=== PATIENT | female | born 1965 | race Caucasian/White ===

== ENCOUNTER 2022-08-08 20:22 | Observation (INO) | payer OTHER ==
[2022-08-08] MEDS ORDERED: MAG HYDROX/AL HYDROX/SIMETH 30 ML, HYOSCYAMINE ELIXIR 10 ML, LIDOCAINE VISCOUS 2% 10 ML PO STA ×3 (20:55)
[2022-08-08 21:09] LABS: Albumin 4.5 g/dL (3.5-5.0); Magnesium 2.1 mg/dL (1.6-2.3); Potassium 4.2 mmol/L (3.5-5.1); Total Bilirubin 0.5 mg/dL (0.2-1.3); Total Protein 7.6 g/dL (6.3-8.2)
[2022-08-08 21:11] LABS: Basophils % (A) 0 %; Eosinophils # (A) 0.2 k/uL (0-0.7); Eosinophils % (A) 3 %; HCT 46.3 % (34.0-46.0); HGB 15.4 gm/dL (11.4-16.0); Lymphocytes # (A) 2.2 k/uL (1.0-4.8); Lymphocytes % (A) 25 %; MCH 31.1 pg (25.0-35.0); MCHC 33.2 g/dL (31.0-37.0); MCV 93.8 fL (80.0-100.0); Mean Platelet Volume 8.4; Monocytes # (A) 0.5 k/uL (0-1.0); Monocytes % (A) 5 %; Neutrophils # (A) 5.7 k/uL (1.3-7.7); Neutrophils % (A) 64 %; Platelet Count 387 k/uL (150-450); RBC 4.94 m/uL (3.80-5.40); RDW 13.3 % (11.5-15.5); WBC 8.9 k/uL (3.8-10.6)
--- NOTE | 2022-08-08 21:18 | XR ---
EXAMINATION TYPE: XR chest 2V DATE OF EXAM: 08/08/2022 COMPARISON: NONE TECHNIQUE: PA and lateral views submitted. HISTORY: Chest pain FINDINGS: The lungs are clear and there is no pneumothorax, pleural effusion, or focal pneumonia. Heart size normal and no overt failure. Osseous structures demonstrate hypertrophic and degenerative changes of the spine. IMPRESSION: 1. No acute process.
--- NOTE | 2022-08-08 22:44 | CT ---
EXAMINATION TYPE: CT chest angio for PE DATE OF EXAM: 08/08/2022 COMPARISON: None HISTORY: Chest pain radiating into head and back. Hx HTN CT DLP: 451.6 mGycm Automated exposure control for dose reduction was used. CONTRAST: CT Chest for pulmonary embolism performed with with IV Contrast, patient injected with 100 mL of Isov ue 370. FINDINGS: LUNGS: Subsegmental changes in the lungs are most typical of atelectasis there is a 3 mm nodule axial image 42 within the right upper lobe too small to characterize additional well 1 to 2 mm nodule subp leural location right upper lobe axial image 76.. There is no pleural effusion or pneumothorax seen . The tracheobronchial tree is patent. MEDIASTINUM: There is satisfactory enhancement of the pulmonary artery and its branches, there is no CT evidence for pulmonary embolism. There are no greater than 1 cm hilar or mediastinal lymph nodes. Trace pericardial effusion is seen. OTHER: Hypertrophic and degenerative changes spine. Small hiatal hernia. IMPRESSION: 1. No diagnostic evidence of pulmonary embolism 2. Bilateral subsegmental areas of consolidation are nonspecific favor atelectasis correlate clinical ly to exclude pneumonitis. There are 3 sub-5 mm pulmonary nodules too small to characterize but likel y benign. Six-month follow-up CT chest recommended.
--- NOTE | 2022-08-08 23:04 | ED ---
Chest Pain HPI - General Chief Complaint: Chest Pain Stated Complaint: Chest Pain Time Seen by Provider: 08/08/22 20:36 Source: patient Mode of arrival: ambulatory Limitations: no limitations - History of Present Illness Initial Comments: This patient is 57-year-old woman who presents to have evaluation of substernal chest pain that radiates to her back. The patient states that it had come on earlier today and has been going on for number of hours. She states that it might be a little worse in relation to food. She has not had nausea or vomiting. The patient did not note any diaphoresis, dyspnea, palpitations, lightheadedness or syncope. Patient also noted headache that came on today. She does state that she had an episode of pain to the left side of the neck within the past week. Patient denies previous history of heart disease or smoking. MD Complaint: chest pain -: hour(s) Onset: during rest Pain Location: substernal Pain Radiation: back, neck Severity: moderate Quality: tightness, aching Consistency: constant Improves With: nothing Worsens With: eating Treatments Prior to Arrival: none - Related Data Home Medications Medication Instructions Recorded Confirmed ALPRAZolam [Xanax] 0.5 mg PO HS 08/08/22 08/08/22 Baclofen 10 mg PO HS PRN 08/08/22 08/08/22 Cholecalciferol [Vitamin D3 (25 25 mcg PO DAILY 08/08/22 08/08/22 Mcg = 1000 Iu)] Diclofenac Potassium [Cataflam] 50 mg PO BID PRN 08/08/22 08/08/22 Escitalopram Oxalate [Lexapro] 20 mg PO DAILY 08/08/22 08/08/22 Multivitamins, Thera [Multivitamin 1 tab PO DAILY 08/08/22 08/08/22 (formulary)] Olmesartan [Benicar] 20 mg PO HS 08/08/22 08/08/22 Allergies Allergy/AdvReac Type Severity Reaction Status Date / Time codeine Allergy Vomiting Verified 08/08/22 21:11 Review of Systems ROS Statement: Those systems with pertinent positive or pertinent negative responses have been documented in the HPI. ROS Other: All systems not noted in ROS Statement are negative. Constitutional: Denies: fever, chills Respiratory: Denies: cough, dyspnea Cardiovascular: Reports: chest pain. Denies: palpitations, orthopnea, edema, syncope Gastrointestinal: Denies: abdominal pain, nausea, vomiting, melena, hematochezia Genitourinary: Denies: dysuria, hematuria Musculoskeletal: Denies: back pain Skin: Denies: rash Neurological: Denies: headache, weakness, numbness EKG Findings - EKG Results: EKG: interpreted by HENRIETTA, sinus rhythm (Rate 74 bpm), normal axis, normal ST/T - Blocks, Burton, Hypertrophy, ST Abn: QRS axis and voltage: low voltage (<0.5 MV total QRS and <1.0 MV in each precordial lead) Past Medical History Past Medical History: Hypertension History of Any Multi-Drug Resistant Organisms: None Reported Past Surgical History: No Surgical Hx Reported Past Psychological History: No Psychological Hx Reported Smoking Status: Never smoker Past Alcohol Use History: None Reported Past Drug Use History: None Reported General Exam Limitations: no limitations General appearance: alert, in no apparent distress Head exam: Present: atraumatic, normocephalic Eye exam: Present: normal appearance. Absent: scleral icterus, conjunctival i njection Neck exam: Present: normal inspection Respiratory exam: Present: normal lung sounds bilaterally. Absent: respiratory distress, wheezes, rales, rhonchi, stridor, chest wall tenderness Cardiovascular Exam: Present: regular rate, normal rhythm, normal heart sounds. Absent: systolic murmur, diastolic murmur, rubs, gallop GI/Abdominal exam: Present: soft. Absent: distended, tenderness, guarding, rebound, rigid, mass Extremities exam: Present: normal inspection, normal capillary refill. Absent: pedal edema, calf tenderness Back exam: Present: normal inspection. Absent: CVA tenderness (R), CVA tenderness (L) Neurological exam: Present: alert Skin exam: Present: warm, dry, intact, normal color. Absent: rash Course Vital Signs 08/08/22 20:28 Temperature 98.1 F Pulse Rate 89 Respiratory 18 Rate Blood Pressure 145/86 O2 Sat by Pulse 98 Oximetry Chest Pain MDM - MDM This patient is a 57-year-old woman presenting with substernal chest pain radiating to the back. The workup here includes chest x-ray which I interpreted as not showing any infiltrate, pneumothorax, congestive heart failure. Her workup does reveal a mildly elevated d-dimer but subsequent computed tomography scan of the chest was performed and I interpreted this as not showing evidence of pulmonary embolism. On reevaluation, the patient states she has had some recurrent episodes of the pain while here, and given this and the fact that she had previous episode this week, will admit to have so cardiac enzymes, telemetry monitoring, cardiology consultation though at this point suspect the pain is non-cardiac in origin. Disposition Clinical Impression: Chest pain Disposition: HOME SELF-CARE Condition: Good Is patient prescribed a controlled substance at d/c from ED?: No
[2022-08-08] MEDS ORDERED: diphenhydrAMINE 50 MG/ML 1 ML VIAL IVP STA (23:09)
[2022-08-08] MEDS ORDERED: METOCLOPRAMIDE 5 MG/ML 2 ML VIAL IVP STA (23:09)
[2022-08-08] MEDS ORDERED: SODIUM CHLORIDE 0.9% 500 ML 500 ML IV STA (23:09)
[2022-08-08] MEDS ORDERED: NITROGLYCERIN SL TABS 0.4 MG TAB SUBLINGUAL PRN (23:54)
[2022-08-08] MEDS ORDERED: ETODOLAC 200 MG CAPSULE PO PRN (23:56)
[2022-08-08] MEDS ORDERED: BACLOFEN 10 MG TAB PO PRN (23:56)
[2022-08-09] MEDS: LOSARTAN 50 MG TAB PO SCH ×2 (01:10→20:04)
[2022-08-09] MEDS ORDERED: ATORVASTATIN 80 MG TAB PO STA (03:55)
--- NOTE | 2022-08-09 03:56 | P.HPIM ---
History of Present Illness H&P Date: 08/09/22 The patient is a 57-year-old female with a PMH of depression who presents to the emergency room with complaints of chest pain. The patient reports that roughly a week ago she had an episode of left-sided chest discomfort aching in nature with radiation into her neck which lasted for a few minutes and then resolved spontaneously. Earlier today however, the patient states that she developed a substernal burning like sensation, occurring intermittently every 30-40 minutes and lasting for a few minutes at a time, 5 out of 10 on maximal intensity, with no clear alleviating or exacerbating features. Patient denies a prior history of GERD. The patient denied experiencing diaphoresis, palpitations, shortness of breath, nausea, vomiting. She reports no discomfort at the time of interview and states that she felt that her baseline. Chest CT in the emergency room revealed 3 sub 5 mm pulmonary nodules likely benign with six-month follow-up CT chest recommended. EKG revealed sinus rhythm at [address]/T-wave changes noted as reviewed by me. Laboratory evaluation was remarkable for troponin less than 0.012 with d-dimer 0.78. ED documentation reviewed and case discussed with ED provider. Review of systems: Pertinent positives and negatives as discussed in HPI, a complete review of systems was performed and all other systems are negative. Physical examination: Vital signs reviewed General: non toxic, no distress, appears at stated age, obese Derm: no unusual rashes/lesions, warm Head: atraumatic, normocephalic, symmetric Eyes: EOMI, no lid lag, anicteric sclera, pupils equal round reactive to light ENT: Nose and ears atraumatic Neck: No cervical lymphadenopathy, trachea midline, supple Mouth: no lip lesion, mucus membranes moist Cardiovascular: S1S2 reg, no murmur, positive dorsalis pedis pulse bilateral, no edema Lungs: CTA bilateral, no rhonchi, no rales, no accessory muscle use Abdominal: soft, nontender to palpation, no guarding Ext: muscle strength 5 out of 5 in all 4 extremities grossly, no gross muscle atrophy, no contractures, Neuro: CN II-XI grossly intact, no gross focal neuro deficits Psych: Alert, oriented, appropriate affect Assessment: Atypical chest discomfort, rule out ACS Multiple pulmonary nodules Chronic conditions hypertension Imaging: Chest CT in the emergency room revealed 3 sub 5 mm pulmonary nodules likely benign with six-month follow-up CT chest recommended. EKG revealed sinus rhythm at [address]/T-wave changes noted as reviewed by me. Data Review: Laboratory evaluation was remarkable for troponin less than 0.012 with d-dimer 0.78. Plan: Cardiology consulted Cardiac monitoring Trend troponin Continue with aspirin and statin Patient will need outpatient follow-up computed tomography scan in 6 months DVT prophylaxis: Heparin subcu The patient is admitted with an anticipated less than 2 midnight stay for evaluation of chest pain CODE STATUS: Full Code Discussed with: Patient Anticipated discharge date: in am Anticipated discharge place: Home Past Medical History Past Medical History: Hypertension History of Any Multi-Drug Resistant Organisms: None Reported Past Surgical History: No Surgical Hx Reported Past Psychological History: No Psychological Hx Reported Smoking Status: Never smoker Past Alcohol Use History: None Reported Past Drug Use History: None Reported Medications and Allergies Home Medications Medication Instructions Recorded Confirmed Type ALPRAZolam [Xanax] 0.5 mg PO HS 08/08/22 08/08/22 History Baclofen 10 mg PO HS PRN 08/08/22 08/08/22 History Cholecalciferol [Vitamin D3 (25 25 mcg PO DAILY 08/08/22 08/08/22 History Mcg = 1000 Iu)] Diclofenac Potassium [Cataflam] 50 mg PO BID PRN 08/08/22 08/08/22 History Escitalopram Oxalate [Lexapro] 20 mg PO DAILY 08/08/22 08/08/22 History Multivitamins, Thera [Multivitamin 1 tab PO DAILY 08/08/22 08/08/22 History (formulary)] Olmesartan [Benicar] 20 mg PO HS 08/08/22 08/08/22 History Allergies Allergy/AdvReac Type Severity Reaction Status Date / Time codeine Allergy Vomiting Verified 08/08/22 21:11 Physical Exam Vitals: Vital Signs Temp Pulse Resp BP Pulse Ox 08/09/22 00:54 18 08/08/22 20:28 98.1 F 89 18 145/86 98 Intake and Output 08/08/22 08/08/22 08/09/22 14:59 22:59 06:59 Other: Voiding Method Toilet # Voids 1 Weight 104.326 kg 104.326 kg Results CBC & Chem 7: 08/08/22 20:40 08/08/22 20:40 Labs: Abnormal Lab Results - Last 24 Hours (Table) 08/08/22 08/08/22 08/08/22 Range/Units 20:40 20:40 20:40 Hct 46.3 H (34.0-46.0) % D-Dimer 0.78 H (<0.60) mg/L FEU Glucose 130 H (74-99) mg/dL
[2022-08-09] MEDS ORDERED: ACETAMINOPHEN TAB 325 MG TAB PO STA (06:01)
[2022-08-09] MEDS: HEPARIN SODIUM,PORCINE/PF 5,000 UNIT/0.5 ML SYRINGE SQ SCH ×3 (08:52→22:18)
[2022-08-09] MEDS: ESCITALOPRAM 20 MG TAB PO SCH (08:53)
[2022-08-09] MEDS: CHOLECALCIFEROL 25 MCG (1000 IU) TABLET PO SCH (08:53)
[2022-08-09] MEDS ORDERED: ASPIRIN 325 MG TAB PO SCH (09:00)
[2022-08-09] MEDS ORDERED: KETOROLAC 15 MG/ML 1 ML VIAL IVP STA (10:38)
[2022-08-09] MEDS ORDERED: PROCHLORPERAZINE INJ 10 MG/2 ML VIAL IVP STA (10:38)
[2022-08-09] MEDS ORDERED: diphenhydrAMINE 50 MG/ML 1 ML VIAL IVP STA (10:38)
--- NOTE | 2022-08-09 10:38 | P.PN ---
Subjective Progress Note Date: 08/09/22 Hospital course: Patient is a very pleasant 57-year-old of hypertension and depression. She presented to the emergency department overnight with a chief complaint of chest pain. Patient reports a burning sensation in the midsternal chest radiating into her back and up into her neck beginning approximately one week ago and progressively worsening accompanied by dysphagia and feelings as though something is stuck in her throat or chest. Patient denies choking and remains able to tolerate oral intake. She underwent full evaluation in the emergency department. CBC and CMP were completed and unremarkable. D-dimer was slightly elevated at 0.78 and Troponin was negative at less than 0.012. EKG completed showing normal sinus rhythm at 74 bpm with T-wave inversion in aVL and no ST abnormalities showing no signs of acute ischemia. No previous EKGs available for comparison. CTA chest showing no evidence of pulmonary emboli revealing bilateral subsegmental areas of consolidation nonspecific for atelectasis, cannot exclude pneumonitis and there were three 5 mm pulmonary nodules too small to characterize but likely benign in which radiologist recommending six-month follow-up CT. Chest x-ray completed and was negative for acute cardiopulmonary process. Patient was admitted observation unit under our services with consultation to cardiology and general surgery. Troponins trended overnight all negative at less than 0.0123 draws. Physical exam: Patient seen and evaluated at bedside this morning. Patient currently reports having a headache and continued burning in her chest. Vital signs reviewed and stable. General: Nontoxic, no distress and appears stated age. Derm: Skin warm and dry, normal coloration for ethnicity. Head: Atraumatic, normocephalic and symmetric. Eyes: EOMs intact, no lid lag, and anicteric sclera Mouth: no lip lesions, mucus membranes moist Cardiovascular: regular rate and rhythm with normal S1S2, no murmur, positive posterior tibial pulses bilaterally, and cap refill < 2 seconds. Lungs: Respirations even, regular, and unlabored on room air. Lungs CTA bilaterally, no rhonchi, no rales, no wheezing, and no accessory muscle usage. Abdominal: soft, nontender to palpation, no guarding, no appreciable organomegaly Ext: ROM intact. No gross muscle atrophy, no edema, no contractures Neuro: Speech clear, face symmetrical and CN II-XII grossly intact with no noted focal neuro deficits Psych: Alert and oriented to person, place, time, and situation. Appropriate and pleasant affect. Assessment and Plan of Care: Chest pain Dysphasia Pulmonary nodules -Troponins were trended started overnight and reviewed all negative at less than 0.013 draws. -Echocardiogram to be completed. -Cardiology following and discussed plan of care with cardiac VOICE INTERCEPT TECHNICIAN stated planning to take patient for cardiac stress test tomorrow morning. -Gen. surgery consulted and discussed patient's reports. General surgeon states he will evaluate for possible upper endoscopy. -Patient to remain on telemetry monitoring. CODE STATUS: Full code DVT prophylaxis: Heparin Discussed with: Patient, RN, cardiac VOICE INTERCEPT TECHNICIAN, and general surgeon Anticipated discharge date: Clinical course to determine likely 1-[address]: Home Patient was seen independently by Nurse Pracitioner. This document was prepared using [employer] dictation software. Please allow for errors in grinding and polishing laborer, while rare they do occur. Arpit Saini VOICE INTERCEPT TECHNICIAN rendered care for this patient independently, reviewed the findings and plan as documented in the note above. I did not physically speak with or examine the patient on this date. Objective - Vital Signs Vital signs: Vital Signs Temp 98.1 F 08/09/22 07:30 Pulse 64 08/09/22 08:00 Resp 16 08/09/22 08:00 BP 148/85 08/09/22 07:30 Pulse Ox 99 08/09/22 07:53 FiO2 Intake & Output 08/08/22 08/09/22 08/09/22 18:59 06:59 18:59 Weight 104.326 kg Other: Voiding Method Toilet Toilet # Voids 1 - Labs CBC & Chem 7: 08/08/22 20:40 08/08/22 20:40 Labs: Abnormal Lab Results - Last 24 Hours (Table) 08/08/22 08/08/22 08/08/22 Range/Units 20:40 20:40 20:40 Hct 46.3 H (34.0-46.0) % D-Dimer 0.78 H (<0.60) mg/L FEU Glucose 130 H (74-99) mg/dL
[2022-08-09 11:03] LABS: Chol/HDL Ratio 3.92 Ratio; VLDL Calculation 14.36 mg/dL (5.00-40.00)
--- NOTE | 2022-08-09 12:15 | P.CRDCN ---
History of Present Illness Consult date: 08/09/22 History of present illness: Patient is a pleasant 57-year-old female with a known history of hypertension and depression, migraines. We have been consulted see the patient for chest pain. 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 Patient developed on Wednesday a headache and dizziness. States 10 years and she's had a migraine. Patient began developing chest pain that radiated into her back and into the left side of her neck. She is also having difficulty with swallowing. She reports it feels like food until her getting stuck in her throat. Her EKG showed sinus rhythm. Her troponins are negative 3. Her chest x-ray was negative for acute cardiopulmonary process. Her d-dimer was elevated. Her chest CT was negative for pulmonary embolism. Blood pressure was found to be elevated in the ER. She is on losartan 100 mg. Patient is Comfortably in bed in no acute distress. She reports she still has a headache. However she denies any further episodes of chest pain. She denies increased shortness of breath, syncope, dizziness, or edema. Will obtain a 2-D echocardiogram and a stress echo tomorrow to rule out abnormal wall motion or cardiac causes. Review of Systems REVIEW OF SYSTEMS At the time of my exam: CONSTITUTIONAL: Denies fever or chills. EYES: Negative for vision changes ENT: Negative for hearing loss CARDIOVASCULAR: Denies chest pain, shortness of breath, diaphoresis, orthopnea, PND or palpitations. VASCULAR: Denies edema RESPIRATORY: Denies cough. GASTROINTESTINAL: Denies abdominal pain, diarrhea, constipation, nausea or vomiting. MUSCULOSKELETAL: Denies myalgias. NEUROLOGIC: Denies numbness, tingling, headache or weakness. ENDOCRINE: Denies fatigue, weight change, polydipsia or polyurina. GENITOURINARY: Denies burning, hematuria or urgency with micturation. HEMATOLOGIC: Denies history of anemia or bleeding. DERMATOLOGY: Denies rash or skin sores PSYCH: Negative for depression or hallucinations. Past Medical History Past Medical History: Hypertension History of Any Multi-Drug Resistant Organisms: None Reported Past Surgical History: No Surgical Hx Reported Past Psychological History: No Psychological Hx Reported Smoking Status: Never smoker Past Alcohol Use History: None Reported Past Drug Use History: None Reported Medications and Allergies Home Medications Medication Instructions Recorded Confirmed Type ALPRAZolam [Xanax] 0.5 mg PO HS 08/08/22 08/08/22 History Baclofen 10 mg PO HS PRN 08/08/22 08/08/22 History Cholecalciferol [Vitamin D3 (25 25 mcg PO DAILY 08/08/22 08/08/22 History Mcg = 1000 Iu)] Diclofenac Potassium [Cataflam] 50 mg PO BID PRN 08/08/22 08/08/22 History Escitalopram Oxalate [Lexapro] 20 mg PO DAILY 08/08/22 08/08/22 History Multivitamins, Thera [Multivitamin 1 tab PO DAILY 08/08/22 08/08/22 History (formulary)] Olmesartan [Benicar] 20 mg PO HS 08/08/22 08/08/22 History Allergies Allergy/AdvReac Type Severity Reaction Status Date / Time codeine Allergy Vomiting Verified 08/08/22 21:11 Physical Exam Vitals: Vital Signs Temp Pulse Pulse Resp BP BP Pulse Ox 08/09/22 08:00 64 16 08/09/22 07:53 99 08/09/22 07:30 98.1 F 64 16 148/85 93 L 08/09/22 00:54 18 08/09/22 00:40 97.8 F 69 16 166/88 99 08/08/22 20:28 98.1 F 89 18 145/86 98 Intake and Output 08/08/22 08/09/22 08/09/22 22:59 06:59 14:59 Other: Voiding Method Toilet Toilet # Voids 1 Weight 104.326 kg 104.326 kg At the time of my exam General: The patient is awake and alert, in no distress, and does not appear acutely ill. Skin: Skin is warm and dry and no rashes or lesions are noted. Eye: Pupils are equal, round and reactive to light, extra-ocular movements are intact; there is normal conjunctiva bilaterally. Ears, nose, mouth and throat: There are moist mucous membranes and no oral lesions. Neck: The neck is supple, there is no tenderness or JVD. Cardiovascular: There is regular rate and rhythm. No murmur, rub or gallop is appreciated. Respiratory: Lungs are clear to auscultation, respirations are non-labored, breath sounds are equal. Gastrointestinal: Soft, non-distended, non-tender abdomen without masses or organomegaly noted. There is no rebound or guarding present. Bowel sounds are unremarkable. Back: There is no tenderness to palpation in the midline. There is no obvious deformity. Musculoskeletal: Normal ROM, no tenderness, There is no pedal edema. There is no calf tenderness or swelling. Extremities: no edema Vascular: Femoral pulse is normal. Posterior tibial pulses are normal .Dorsalis pedis is palpable. Neurological: CN II-XII intact. There are no obvious motor or sensory deficits. Speech is normal. Psychiatric: Cooperative, appropriate mood & affect, normal judgment Results 08/08/22 20:40 08/08/22 20:40 Cardiac Enzymes 08/08/22 08/08/22 08/09/22 Range/Units 20:40 20:40 00:07 AST 23 (14-36) U/L Troponin I <0.012 <0.012 (0.000-0.034) ng/mL 08/09/22 Range/Units 04:46 AST (14-36) U/L Troponin I <0.012 (0.000-0.034) ng/mL Lipids 08/09/22 Range/Units 04:46 Triglycerides 71.80 (0.00-149.00) mg/dL Cholesterol 222.00 H (0.00-200.00) mg/dL HDL Cholesterol 56.60 (40.00-60.00) mg/dL Cholesterol/HDL Ratio 3.92 Ratio CBC 08/08/22 Range/Units 20:40 WBC 8.9 (3.8-10.6) k/uL RBC 4.94 (3.80-5.40) m/uL Hgb 15.4 (11.4-16.0) gm/dL Hct 46.3 H (34.0-46.0) % Plt Count 387 (150-450) k/uL Comprehensive Metabolic Panel 08/08/22 Range/Units 20:40 Sodium 140 (137-145) mmol/L Potassium 4.2 (3.5-5.1) mmol/L Chloride 107 (98-107) mmol/L Carbon Dioxide 24 (22-30) mmol/L BUN 14 (7-17) mg/dL Creatinine 0.84 (0.52-1.04) mg/dL Glucose 130 H (74-99) mg/dL Calcium 10.0 (8.4-10.2) mg/dL AST 23 (14-36) U/L ALT 25 (4-34) U/L Alkaline Phosphatase 92 (38-126) U/L Total Protein 7.6 (6.3-8.2) g/dL Albumin 4.5 (3.5-5.0) g/dL Current Medications Generic Name Dose Route Start Last Admin Trade Name Freq PRN Reason Stop Dose Admin Alprazolam 0.5 mg 08/09/22 21:00 Alprazolam 0.5 Mg Tab PO HS REBECCA Aspirin 325 mg 08/09/22 09:00 08/09/22 08:53 Aspirin 325 Mg Tab PO 325 mg DAILY REBECCA Administration Baclofen 10 mg 08/08/22 23:56 Baclofen 10 Mg Tab PO HS PRN Pain Cholecalciferol 25 mcg 08/09/22 09:00 08/09/22 08:53 Cholecalciferol 25 Mcg (1000 Iu) Tablet PO 25 mcg DAILY REBECCA Administration Escitalopram Oxalate 20 mg 08/09/22 09:00 08/09/22 08:53 Escitalopram 20 Mg Tab PO 20 mg DAILY REBECCA Administration Etodolac 200 mg 08/08/22 23:56 Etodolac 200 Mg Capsule PO BID PRN Pain Heparin Sodium (Porcine) 5,000 unit 08/09/22 08:00 08/09/22 08:52 Heparin Sodium,Porcine/Pf 5,000 Unit/0.5 Ml Syringe SQ 5,000 unit Q8HR REBECCA Administration Losartan Potassium 100 mg 08/09/22 01:00 08/09/22 01:10 Losartan 50 Mg Tab PO 100 mg HS REBECCA Administration Nitroglycerin 0.4 mg 08/08/22 23:54 Nitroglycerin Sl Tabs 0.4 Mg Tab SUBLINGUAL Q5M PRN Chest Pain Intake and Output 08/08/22 08/09/22 08/09/22 22:59 06:59 14:59 Other: Voiding Method Toilet Toilet # Voids 1 Weight 104.326 kg 104.326 kg 08/08/22 20:40 08/08/22 20:40 Assessment and Plan Assessment: Chest pain rule out ACS Hypertension History of Migraines Plan: obtain a 2-D echocardiogram Will obtain a stress echo Continue with all current cardiac meds Continue telemetry monitoring Further recommendations based on clinical course The above impression and plan of care have been discussed and directed by the signing physician. Roxana Pineda, nurse practitioner, acting as scribe for signing physician.
[2022-08-09] MEDS ORDERED: ALPRAZolam 0.5 MG TAB PO SCH (21:00)
[2022-08-10 08:20] VITALS: RESP 16
[2022-08-10] MEDS ORDERED: ASPIRIN 81 MG PO SCH (09:00)
[2022-08-10] MEDS: CHOLECALCIFEROL 25 MCG (1000 IU) TABLET PO SCH (09:01)
[2022-08-10] MEDS: ESCITALOPRAM 20 MG TAB PO SCH (09:01)
--- NOTE | 2022-08-10 09:23 | P.PN ---
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 She presented to the hospital with a chief complaint of chest pain. Patient examined this morning at the bedside. Patient states she's had no further episodes of chest pain or pressure. She still continues to feel like she has something in her throat. She does report that the pain seemed to be worse when she eats. Vital signs are stable. PHYSICAL EXAM: VITAL SIGNS: Reviewed. GENERAL: Well-developed in no acute distress. NECK: Supple. No JVD or thyromegaly LUNGS: Respirations even and unlabored. Lungs essentially clear to auscultation bilaterally. HEART: Regular rate and rhythm. S1 and S2 heard. EXTREMITIES: Normal range of motion. No clubbing or cyanosis. Peripheral pulses intact. No lower extremity edema ASSESSMENT: Chest pain Dysphagia Hypertension Hyperlipidemia Pulmonary nodules Anxiety History of migraines PLAN: An acute coronary event has been ruled out Decrease aspirin to 81 mg daily Add atorvastatin 20 mg at night Obtain 2-D echo to assess cardiac structure and function Patient's symptoms are more suggestive of GI related rather than cardiac in etiology. However she is scheduled for stress echocardiogram today She has been evaluated by general surgery and is scheduled for EGD with possible dilation pending the results of her stress test Further recommendations pending patient's course Nurse practitioner note has been reviewed by physician. Signing provider agrees with the documented findings, assessment, and plan of care. Objective - Vital Signs Vital signs: Vital Signs Temp 98.2 F 08/10/22 07:00 Pulse 75 08/10/22 07:00 Resp 16 08/10/22 07:00 BP 155/87 08/10/22 07:00 Pulse Ox 97 08/10/22 08:56 FiO2 21 08/10/22 08:56 Intake & Output 08/09/22 08/10/22 08/10/22 18:59 06:59 18:59 Intake Total 120 500 Balance 120 500 Intake: Oral 120 500 Other: Voiding Method Toilet Toilet # Voids 3 - Labs CBC & Chem 7: 08/08/22 20:40 08/08/22 20:40 Labs: Abnormal Lab Results - Last 24 Hours (Table) 08/09/22 Range/Units 04:46 Cholesterol 222.00 H (0.00-200.00) mg/dL LDL Cholesterol, Calc 151.0 H (0.0-131.0) mg/dL
--- NOTE | 2022-08-10 12:59 | P.GSCN ---
History of Present Illness Consult date: 08/10/22 Reason for Consult: Chest pain, dysphagia History of present illness: 57-year-old female comes in the hospital complaining of chest pain. Pain did radiate to the neck. She's been seen by cardiology. Patient also having complaints of dysphagia and feeling a fullness sensation. We were consulted for upper endoscopy. No history of similar events. Review of Systems The patient denies any acute changes in vision or hearing, no dysphagia or odynophagia, no chest pain or shortness of breath, no dysuria or hematuria, no headache, no runny nose, no rectal bleeding or melena, no unexplained weight loss Past Medical History Past Medical History: Hypertension History of Any Multi-Drug Resistant Organisms: None Reported Past Surgical History: No Surgical Hx Reported Past Psychological History: No Psychological Hx Reported Smoking Status: Never smoker Past Alcohol Use History: None Reported Past Drug Use History: None Reported Medications and Allergies Home Medications Medication Instructions Recorded Confirmed Type ALPRAZolam [Xanax] 0.5 mg PO HS 08/08/22 08/08/22 History Baclofen 10 mg PO HS PRN 08/08/22 08/08/22 History Cholecalciferol [Vitamin D3 (25 25 mcg PO DAILY 08/08/22 08/08/22 History Mcg = 1000 Iu)] Diclofenac Potassium [Cataflam] 50 mg PO BID PRN 08/08/22 08/08/22 History Escitalopram Oxalate [Lexapro] 20 mg PO DAILY 08/08/22 08/08/22 History Multivitamins, Thera [Multivitamin 1 tab PO DAILY 08/08/22 08/08/22 History (formulary)] Olmesartan [Benicar] 20 mg PO HS 08/08/22 08/08/22 History Allergies Allergy/AdvReac Type Severity Reaction Status Date / Time codeine Allergy Vomiting Verified 08/08/22 21:11 Surgical - Exam Vital Signs Temp Pulse Resp BP Pulse Ox 98.1 F 89 18 145/86 98 08/08/22 20:28 08/08/22 20:28 08/08/22 20:28 08/08/22 20:28 08/08/22 20:28 Physical exam: General: Well-developed, well-nourished HEENT: Normocephalic, sclerae nonicteric Abdomen: Nontender, nondistended Extremities: No edema Neuro: Alert and oriented Results - Labs 08/08/22 20:40 08/08/22 20:40 Assessment and Plan (1) Dysphagia Narrative/Plan: Will proceed with upper endoscopy with possible dilation possible biopsy at this time. Risks of bleeding and perforation reviewed. She would like to proceed. Current Visit: Yes Status: Acute Code(s): R13.10 - SNOMED Code(s): 09646456
[2022-08-10] MEDS ORDERED: PROPOFOL 10 MG/ML 20 ML VIAL IV ONE (13:00)
[2022-08-10] MEDS ORDERED: LIDOCAINE 2% INJ 20 MG/ML (2 ML VIAL) ONE (13:00)
[2022-08-10] MEDS ORDERED: SODIUM CHLORIDE 0.9% 500 ML 500 ML IV ONE (13:20)
--- NOTE | 2022-08-10 13:25 | P.PCN ---
Date of Procedure: 08/10/22 Procedure(s) Performed: Preoperative Dx: Chest pain, dysphagia Postoperative Dx: Mild gastritis, small hiatal hernia, mild esophagitis, mild inflammation vocal cords Procedure: EGD with Bx Anesthesia: Sedation Endoscopist: Dr. Anderson Specimens: Antrum Endoscopic Procedure: The patient was on the endoscopy table in the left decubitus position. The Olympus gastroscope was inserted into the oropharynx and passed under direct visualization to the region of the third portion of the duodenum. From that point the scope was slowly withdrawn inspecting all surfaces carefully. There were no neoplastic inflammatory or polypoid lesions throughout the duodenum. The pylorus was widely patent. The stomach was carefully inspected. There was mild gastritis present. A biopsy of the antrum took place to rule out H. pylori. Retroflexion revealed a small sliding hiatal hernia. The GE junction was present 2 cm above the diaphragm. The distal esophagus appeared normal. In the middle esophagus there was noted be very slight erythema. No biopsies were taken. This did not appear to be associated with any luminal narrowing or neoplastic changes. The proximal esophagus appeared normal. The patient's vocal cords were visualized and had some mild erythema bilaterally. The patient was then taken to the recovery room in stable condition per anesthesia guidelines. Recommendations: Resume diet. Continue antiacid therapy. We'll discuss vocal cord findings with patient. Patient may benefit from ENT evaluation at some point.
--- NOTE | 2022-08-10 14:13 | CA ---
Transthoracic Echo Report Name: Shayla Jewell Age: 57 Gender: F : 1965 Exam Date: 08/10/2022 11:20 Exam Location: [place] [facility] Ht (in): 65 Wt (lb): 230 Ordering Physician: Rod Mercedes MD ([id number]) Attending/Referring Phys: Mago PANDEY Jumpbasting Facing Baster Katja Avelar RDCS Procedure CPT: Indications: CP Cardiac Hx: Technical Quality: Fair Contrast 1: Total Dose (mL): Contrast 2: Total Dose (mL): MEASUREMENTS (Male / Female) Normal Values 2D ECHO LV Diastolic Diameter PLAX 3.8 cm 4.2 - 5.9 / 3.9 - 5.3 cm LV Systolic Diameter PLAX 2.3 cm IVS Diastolic Thickness 1.3 cm 0.6 - 1.0 / 0.6 - 0.9 cm LVPW Diastolic Thickness 1.3 cm 0.6 - 1.0 / 0.6 - 0.9 cm LV Relative Wall Thickness 0.7 RV Internal Dim ED PLAX 3.7 cm LA Volume 48.2 cm??? 18 - 58 / 22 - 52 cm??? M-MODE Aortic Root Diameter MM 2.9 cm LA Systolic Diameter MM 3.3 cm LA Ao Ratio MM 1.1 AV Cusp Separation MM 1.8 cm DOPPLER AV Peak Velocity 120.0 cm/s AV Peak Gradient 5.8 mmHg AV Mean Velocity 82.7 cm/s AV Mean Gradient 3.0 mmHg AV Velocity Time Integral 21.4 cm LVOT Peak Velocity 79.2 cm/s LVOT Peak Gradient 2.5 mmHg LVOT Velocity Time Integral 17.2 cm MV Area PHT 3.0 cm??? Mitral E Point Velocity 57.6 cm/s Mitral A Point Velocity 72.2 cm/s Mitral E to A Ratio 0.8 MV Deceleration Time 250.2 ms MV E' Velocity 5.3 cm/s Mitral E to MV E' Ratio 10.9 TR Peak Velocity 277.5 cm/s TR Peak Gradient 30.8 mmHg Right Ventricular Systolic Press 34.8 mmHg FINDINGS Left Ventricle Mildly increased left ventricular wall thickness. Left ventricular cavity size normal. Normal left ventricular systolic function with no obvious regional wall motion abnormalities. Left ventricular ejection fraction is estimated at 55-60 %. Normal left ventricular diastolic filling pattern. Right Ventricle Mild right ventricular dilatation. Mild pulmonary hypertension. Right Atrium Normal right atrial size. Left Atrium Normal left atrial size. Interatrial septal aneurysm. Mitral Valve Structurally normal mitral valve. No mitral stenosis, regurgitation or prolapse. Aortic Valve No aortic valve stenosis or regurgitation. Tricuspid Valve Structurally normal tricuspid valve. Mild tricuspid regurgitation. Pulmonic Valve Structurally normal pulmonic valve. Pericardium No pericardial effusion. Aorta Normal size aortic root and proximal ascending aorta. CONCLUSIONS Normal LV size and systolic function Previewed by: Dr. Carloz Lucio MD (Electronically Signed) Final Date: 10 August 2022 14:12
--- NOTE | 2022-08-10 14:19 | CA ---
Stress Echo Report Shayla Jewell Age: 57 Gender: F : 1965 Exam Date: 08/10/2022 10:49 Exam Location: [place] [facility] Ht (in): 65 Wt (lb): 230 Ordering Physician: Roxana Pineda Referring Physician: DANNI, Real Estate Intern: [employer] Technologist Procedure CPT: Indication: Chest Pain ICD-9 Codes: Rhythm: Patient History: CHEST PAIN, PALPITATIONS, HTN, FAMILY HX OF HEART DISEASE Cardiac Medications: Medications in past 24 hours: Contrast: Stress Results Protocol: Pepito Total dose(mL): Exercise Duration (min:sec): 6:[address] Depression (mm): Angina Score: Travis Score: METS: 7.1 Resting HR: 94 Resting BP: 144 / 103 Peak HR: 141 Peak BP: 207 / 115 Max Predicted HR: 163 87 % Max Predicted HR Target HR: 139 Double Product: 10067 Stress Summary: BP Response: Reason for Termination: MAX EXERTION/TARGET HR Cardiac Symptoms: FATIGUE ECG Analysis Resting ECG: Stress ECG: Arrhythmia: Echo Analysis Resting Echo: Peak Echo Analysis: MEASUREMENTS (Male/Female) Normal Values CONCLUSIONS Baseline heart rate 81 beats a minute, Baseline blood pressure 145/100 mmHg Baseline EKG showed sinus rhythm with normal ST segments Patient exercised on a Pepito protocol for 6 minutes achieving a peak heart rate 140 beats a minute. Mildly hypertensive response to exercise. Peak blood pressure 207/115 mmHg There is no ECG is for ischemia No arrhythmias noted No symptoms noted At peak exercise there was excellent augmentation of oral LV contractility, without development of any wall motion abnormalities @Recovery regional global LV systolic function remained normal Dr. Craloz Lucio MD (Electronically Signed) Final Date: 10 August 2022 14:18
[2022-08-10] MEDS: HEPARIN SODIUM,PORCINE/PF 5,000 UNIT/0.5 ML SYRINGE SQ SCH ×2 (14:52→16:15)
[2022-08-10 16:02] VITALS: TEMP 97.9
[2022-08-10 16:06] VITALS: BP 145/88; PULSE 72
--- NOTE | 2022-08-10 16:55 | P.DS ---
Providers Date of admission: 08/09/22 00:03 Expected date of discharge: 08/10/22 Attending physician: Alex Yepez MD Consults: 08/09/22 10:40 Consult Physician Routine Consulting Provider: Alex Anderson Consult Reason/Comments: dysphagia, feels like something getting stuck Do you want consulting provider notified?: Yes, Notify in am Primary care physician: Seth Wood DO Hospital Course: Discharge Diagnosis: Chest pain, acute coronary event ruled out. Dysphasia, patient underwent EGD and was found to have mild gastritis, small hiatal hernia, mild esophagitis, and mild inflammation of her vocal cords. Patient to follow-up outpatient with ENT for further evaluation of inflammation of her vocal cords. Patient also discharged home on omeprazole 20 mg daily. Pulmonary nodules. Patient was instructed that she will need to follow-up outpatient in 6 months for repeat computed tomography scan for evaluation of pulmonary nodules. Elevated d-dimer, CTA negative for pulmonary emboli. Hypertension Hyperlipidemia Hospital Course: Patient is a very pleasant 57-year-old of hypertension and depression. She presented to the emergency department overnight with a chief complaint of chest pain. Patient reports a burning sensation in the midsternal chest radiating into her back and up into her neck beginning approximately one week ago and progressively worsening accompanied by dysphagia and feelings as though something is stuck in her throat or chest. Patient denies choking and remains able to tolerate oral intake. She underwent full evaluation in the emergency department. CBC and CMP were completed and unremarkable. D-dimer was slightly elevated at 0.78 and Troponin was negative at less than 0.012. EKG completed showing normal sinus rhythm at 74 bpm with T-wave inversion in aVL and no ST abnormalities showing no signs of acute ischemia. No previous EKGs available for comparison. CTA chest showing no evidence of pulmonary emboli revealing bilateral subsegmental areas of consolidation nonspecific for atelectasis, cannot exclude pneumonitis and there were three 5 mm pulmonary nodules too small to characterize but likely benign in which radiologist recommending six-month follow-up CT. Chest x-ray completed and was negative for acute cardiopulmonary process. Patient was admitted observation unit under our services with consultation to cardiology and general surgery. Troponins trended overnight all negative at less than 0.0123 draws. Echocardiogram was completed showing normal EF of 55-60% with no significant valvular or structural abnormalities reported. Lipid profile revealing an elevated total cholesterol of 222 and elevated LDL of 151 and patient started on atorvastatin nightly. Patient was evaluated by general surgeon secondary to reports of dysphagia. She underwent an EGD and was found to have mild gastritis, small hiatal hernia, mild esophagitis, and mild inflammation of her vocal cords. Cardiology evaluated in the patient for stress echocardiogram. Stress echo revealed excellent left ventricular contractility without development of any wall motion abnormalities. Patient was cleared by cardiology for outpatient follow-up in the office. She has been cleared by general surgery. Patient is medically stable for discharge home at this time. Physical exam: Patient seen and evaluated at bedside this morning. Patient currently reports having a headache and continued burning in her chest. Vital signs reviewed and stable. General: Nontoxic, no distress and appears stated age. Derm: Skin warm and dry, normal coloration for ethnicity. Head: Atraumatic, normocephalic and symmetric. Eyes: EOMs intact, no lid lag, and anicteric sclera Mouth: no lip lesions, mucus membranes moist Cardiovascular: regular rate and rhythm with normal S1S2, no murmur, positive posterior tibial pulses bilaterally, and cap refill < 2 seconds. Lungs: Respirations even, regular, and unlabored on room air. Lungs CTA bilaterally, no rhonchi, no rales, no wheezing, and no accessory muscle usage. Abdominal: soft, nontender to palpation, no guarding, no appreciable organomegaly Ext: ROM intact. No gross muscle atrophy, no edema, no contractures Neuro: Speech clear, face symmetrical and CN II-XII grossly intact with no noted focal neuro deficits Psych: Alert and oriented to person, place, time, and situation. Appropriate and pleasant affect. A total of 31 minutes of time were spent preparing this complex discharge summary. Pt was discharged on Patient was seen independently by Nurse Practitioner. This document was prepared using [employer] dictation software. Please allow for errors in director of housing while rare they do occur. Patient Condition at Discharge: Stable Plan - Discharge Summary New Discharge Prescriptions: New Atorvastatin [Lipitor] 20 mg PO HS 30 Days #30 tab Omeprazole [PriLOSEC] 20 mg PO AC-BRKFST #90 cap Aspirin 81 mg PO DAILY 30 Days #30 tab Continue Multivitamins, Thera [Multivitamin (formulary)] 1 tab PO DAILY Escitalopram Oxalate [Lexapro] 20 mg PO DAILY ALPRAZolam [Xanax] 0.5 mg PO HS Olmesartan [Benicar] 20 mg PO HS Diclofenac Potassium [Cataflam] 50 mg PO BID PRN PRN Reason: Pain Cholecalciferol [Vitamin D3 (25 Mcg = 1000 Iu)] 25 mcg PO DAILY Baclofen 10 mg PO HS PRN PRN Reason: Pain Discharge Medication List ALPRAZolam [Xanax] 0.5 mg PO HS 08/08/22 [History] Baclofen 10 mg PO HS PRN 08/08/22 [History] Cholecalciferol [Vitamin D3 (25 Mcg = 1000 Iu)] 25 mcg PO DAILY 08/08/22 [History] Diclofenac Potassium [Cataflam] 50 mg PO BID PRN 08/08/22 [History] Escitalopram Oxalate [Lexapro] 20 mg PO DAILY 08/08/22 [History] Multivitamins, Thera [Multivitamin (formulary)] 1 tab PO DAILY 08/08/22 [History] Olmesartan [Benicar] 20 mg PO HS 08/08/22 [History] Aspirin 81 mg PO DAILY 30 Days #30 tab 08/10/22 [Rx] Atorvastatin [Lipitor] 20 mg PO HS 30 Days #30 tab 08/10/22 [Rx] Omeprazole [PriLOSEC] 20 mg PO AC-BRKFST #90 cap 08/10/22 [Rx] Follow up Appointment(s)/Referral(s): Seth Wood DO [Primary Care Provider] - 1-2 days Rod Mercedes MD [STAFF PHYSICIAN] - 1 Week Patient Instructions/Handouts: Chest Pain (ED)
[2022-08-10] MEDS ORDERED: ATORVASTATIN 20 MG TAB PO SCH (21:00)
== END 2022-08-10 17:53 | disposition home or self-care (01) ==
LOC: EC 20:22 → 6NMEDSUR 08-09 00:03
PROVIDERS: ADMIT Internal Medicine; ATTEND Internal Medicine
DX: K29.50 Unspecified chronic gastritis without bleeding (principal); K44.9 Diaphragmatic hernia without obstruction or gangrene; J38.3 Other diseases of vocal cords; K20.90 Esophagitis, unspecified without bleeding; R07.89 Other chest pain; F32.A Depression, unspecified; G43.909 Migraine, unspecified, not intractable, without status migrainosus; F41.9 Anxiety disorder, unspecified; I10 Essential (primary) hypertension; R91.8 Other nonspecific abnormal finding of lung field; Z79.899 Other long term (current) drug therapy; Z88.5 Allergy status to narcotic agent
CPT/HCPCS: 96375 ×2; 96361; 96374; 99285; 36415; 94760 ×2; 93005; 93306; 93351; 85379; 88305; 80061; 80053; 82150; 83690; 83735; 84484 ×2; 85025; 71046; 71275; 43239; G0378 ×2; J1200 ×2; J0780; J2765; J1885; Q9967; J1644